=== PATIENT | male | born 1985 | race Hispanic/Latino ===

== ENCOUNTER 2017-07-25 11:03 | Emergency (ER) | payer SELFPAY ==
[~2017-07-25] VITALS: Ht 170.2 cm; Wt 120.5 kg
[2017-07-25 11:26] LABS: IMMATURE GRANULOCYTES 0.4 % (0.0-1.0); MEAN CELL VOLUME 83.2 fL CALC (80.0-100.0); MEAN CORPUSCULAR HGB 25.7 pG CALC (26.0-32.0); MEAN CORPUSCULAR HGB CONC 30.9 g/L CALC (32.0-36.0); NEUT# 9.29 thou/uL (1.82-7.42); RED BLOOD COUNT 5.17 mill/uL (4.70-6.10); RED CELL DISTRI WIDTH 14.4 % (11.5-15.5)
[2017-07-25 11:27] LABS: HEMOGLOBIN 13.3 g/dl (14.0-18.0)
[2017-07-25 11:51] LABS: ANION GAP 18 (6-22 (CALC)); BUN 9 mg/dL (9-20); CARBON DIOXIDE 26 mmol/l (22-30); CHLORIDE 103 mmol/l (95-108); SODIUM 143 mmol/l (137-146)
[2017-07-25 11:52] LABS: BUN/CREATININE RATIO 15 (12-20 (CALC)); CREATININE 0.6 mg/dL (0.7-1.3); GFR > 60 ML/MIN (>=60 (CALC)); GFR FOR AFR.AMER. > 60 ML/MIN (>=60 (CALC)); POTASSIUM 3.7 mmol/l (3.5-5.1)
[2017-07-25 14:46] VITALS: BP 154/100
[2017-07-25] MEDS ORDERED: RANITIDINE150 M1 PO (14:53)
== END 2017-07-25 15:03 | disposition home or self-care (01) | DRG 313 ==
LOC: ED 11:03 → ED-I 11:40 → ED 11:40 → ED-I 12:27 → ED 15:03
PROVIDERS: Family Medicine
DX: R07.9 Chest pain, unspecified (principal); R06.02 Shortness of breath; R11.0 Nausea

== ENCOUNTER 2022-06-22 20:43 | Emergency (ER) | payer SELFPAY ==
[~2022-06-22] VITALS: Ht 170.2 cm; Wt 116.0 kg
[2022-06-22] VITALS (10 sets, daily range): BP systolic 139–178; BP diastolic 91–105
[~2022-06-22 20:43] MED LIST: RANITIDINE150 M1 PO
[2022-06-22] MEDS ORDERED: OMEPRAZOLE DR40 MG PO (21:04)
[2022-06-22] MEDS ORDERED: METOPROL TAR25 MG PO (21:05)
[2022-06-22 21:20] LABS: BASO% 0.6 % (0-3); HEMATOCRIT 46.5 % (39.0-50.0); HEMOGLOBIN 14.7 g/dl (14.0-18.0); IMMATURE GRANULOCYTES 0.3 % (0.0-5.0); LYMPH% 21.4 % (15-41); MEAN CELL VOLUME 85.6 fL CALC (80.0-100.0); MEAN CORPUSCULAR HGB 27.1 pG CALC (26.0-32.0); MEAN CORPUSCULAR HGB CONC 31.6 g/dL CAL (32.0-36.0); MONO% 8.9 % (2-13); NEUT# 8.29 thou/uL (1.82-7.42); NEUT% 66.8 % (42-76); RED BLOOD COUNT 5.43 mill/uL (4.70-6.10); RED CELL DISTRI WIDTH 14.4 % (11.5-15.5)
[2022-06-22 21:29] LABS: ALBUMIN 4.8 g/dL (3.2-5.0); ALKALINE PHOSPHATASE 102 u/l (38-126); ANION GAP 13 (6-22 (CALC)); BILIRUBIN, TOTAL 0.3 mg/dL (0.2-1.3); BUN 16 mg/dL (9-20); BUN/CREATININE RATIO 22 (12-20 (CALC)); CARBON DIOXIDE 27 mmol/l (22-30); CHLORIDE 101 mmol/l (95-108); CREATININE 0.7 mg/dL (0.7-1.3); GFR FOR AFR.AMER. > 60 ML/MIN (>=60 (CALC)); GFR OTHER RACES > 60 ML/MIN (>=60 (CALC)); LIPASE 71 u/l (23-300); POTASSIUM 3.7 mmol/l (3.5-5.1); SGOT/AST 26 u/l (17-59); SODIUM 137 mmol/l (137-146)
[2022-06-22 21:41] LABS: D-DIMER 0.17 mg/L (0.19-0.60); TOTAL PROTEIN 8.1 g/dL (6.3-8.2)
[2022-06-22 21:45] LABS: ACT PARTIAL THROMBO TIME 26.6 SECONDS (20.0-32.5); PROTHROMBIN TIME 10.1 SECONDS (9.0-12.5)
[2022-06-22] MEDS ORDERED: OMEPRAZOLE20 MG PO (23:44)
[2022-06-22] MEDS ORDERED: LISINOPRIL20 M1 PO (23:44)
== END 2022-06-23 | disposition left against medical advice (07) | DRG 313 ==
LOC: ED 20:43
PROVIDERS: Emergency Medicine
DX: R07.9 Chest pain, unspecified (principal); R00.0 Tachycardia, unspecified; I10 Essential (primary) hypertension; E78.5 Hyperlipidemia, unspecified; E66.9 Obesity, unspecified; Z53.29 Procedure and treatment not carried out because of patient's decision for other reasons
CPT/HCPCS: Q9967